=== PATIENT | male | born 1980 | race Caucasian/White ===

== ENCOUNTER 2016-12-14 13:57 | Emergency (ER) | payer OTHER ==
[~2016-12-14] VITALS: Ht 177.8 cm; Wt 72.6 kg
[~2016-12-14 13:57] MED LIST: 'PARAFON FORTE500 M1 PO; AMOXIL500 MG PO; CORDROL20 MG PO; CYCLOBENZAPRINE10 MG PO; DAYPRO600 M1 PO; HYDROCODONE BIT1 T11 PO; MEDROL DOSEPAK4 MG PO; MOTRIN800 MG PO; Motrin,Rufen800 MG PO; NAPROSYN500 MG PO; OMNICEF300 MG PO; ROBITUSSIN-AC 160 ML PO; SKELAXIN800 MG PO; ULTRAM50 MG PO
[2016-12-14] MEDS ORDERED: ZOFRAN4 MG PO (14:24)
[2016-12-14] MEDS ORDERED: Peridex 473 ML473 ML PO (14:24)
[2016-12-14] MEDS ORDERED: LIDOCAINE HCL100 M1 MM (14:24)
[2016-12-14] MEDS ORDERED: PENICILLIN VK500 MG PO (14:24)
== END 2016-12-14 15:36 | disposition home or self-care (01) ==
LOC: ED 13:57
DX: K02.9 Dental caries, unspecified (principal); R03.0 Elevated blood-pressure reading, without diagnosis of hypertension; F17.200 Nicotine dependence, unspecified, uncomplicated

== ENCOUNTER 2017-05-17 14:23 | Emergency (ER) | payer OTHER ==
[~2017-05-17] VITALS: Wt 74.8 kg
[~2017-05-17 14:23] MED LIST changes: +LIDOCAINE HCL100 M1 MM; +PENICILLIN VK500 MG PO; +Peridex 473 ML473 ML PO; +ZOFRAN4 MG PO
[2017-05-17] MEDS ORDERED: NOVAPLUS V0.09 MG/Ac INH (14:34)
[2017-05-17] MEDS ORDERED: AUGMENTIN 875875 MG PO (16:06)
[2017-05-17] MEDS ORDERED: PEPCID40 MG PO (16:06)
== END 2017-05-17 16:08 | disposition home or self-care (01) ==
LOC: ED 14:23
DX: K21.9 Gastro-esophageal reflux disease without esophagitis (principal); H66.91 Otitis media, unspecified, right ear; F17.200 Nicotine dependence, unspecified, uncomplicated

== ENCOUNTER 2017-07-20 17:30 | Emergency (ER) | payer OTHER ==
[~2017-07-20] VITALS: Ht 180.3 cm; Wt 74.8 kg
[~2017-07-20 17:30] MED LIST changes: +AUGMENTIN 875875 MG PO; +NOVAPLUS V0.09 MG/Ac INH; +PEPCID40 MG PO
[2017-07-20] MEDS ORDERED: OMNICEF300 MG PO (17:49)
== END 2017-07-20 17:56 | disposition home or self-care (01) ==
LOC: ED 17:30
DX: H66.91 Otitis media, unspecified, right ear (principal); R03.0 Elevated blood-pressure reading, without diagnosis of hypertension; K21.9 Gastro-esophageal reflux disease without esophagitis; F17.200 Nicotine dependence, unspecified, uncomplicated

== ENCOUNTER 2017-09-25 08:15 | Emergency (ER) | payer OTHER ==
[~2017-09-25] VITALS: Ht 180.3 cm; Wt 79.4 kg
[2017-09-25] MEDS ORDERED: SUBOXONE 8 MG-1 EACH SL (08:35)
[2017-09-25 08:42] LABS: BASO % 0.2 % (0.0-1.0); EOS # 0.3 10*3/uL (0.0-0.4); EOS % 1.6 % (1.0-4.0); HEMATOCRIT 40.9 % (42.0-52.0); HEMOGLOBIN 14.1 g/dl (14.0-18.0); LYMPH # 2.1 10*3/uL (1.3-4.4); MEAN CELL VOLUME 91.9 fl (80.0-94.0); MEAN CORPUSCULAR HGB 31.7 pg (27.0-31.0); MEAN CORPUSCULAR HGB CONC 34.5 g/dl (33.0-37.0); MEAN PLATELET VOLUME 8.9 fl (9.6-12.3); MONO # 0.8 10*3/uL (0.1-1.0); MONO % 5.1 % (3.0-9.0); NEUT # 12.7 10*3/uL (2.3-7.9); NEUT % 79.6 % (47.0-73.0); PLATELET COUNT AUTOMATED 260 10*3/uL (130-400); RED BLOOD COUNT 4.45 10*6/uL (4.50-5.90); RED CELL DISTRI WIDTH 12.7 % (0-14.5)
[2017-09-25 08:48] LABS: ACT PARTIAL THROMBO TIME 26.3 SECONDS (20.8-31.5)
[2017-09-25 08:58] LABS: ALBUMIN 4.1 gm/dl (3.1-4.5); ALKALINE PHOSPHATASE 69 U/L (45-117); BUN 8 mg/dl (7-24); CHLORIDE 104 mmol/L (98-107); CREATININE 1.05 mg/dL (0.70-1.30); POTASSIUM 4.4 mmol/L (3.5-5.1); SGOT/AST 13 IU/L (3-35); SGPT/ALT 21 U/L (12-78); SODIUM 139 mmol/L (136-145); TOTAL PROTEIN 7.6 gm/dL (6.4-8.2)
[2017-09-25 09:01] LABS: TROPONIN I < 0.015 ng/ml (<0.045)
== END 2017-09-25 11:43 | disposition home or self-care (01) ==
LOC: ED 08:15
PROVIDERS: Student in an Organized Health Care Education/Training Program
DX: R07.9 Chest pain, unspecified (principal); K21.9 Gastro-esophageal reflux disease without esophagitis

== ENCOUNTER 2018-03-05 18:41 | Emergency (ER) | payer OTHER ==
[~2018-03-05] VITALS: Ht 177.8 cm; Wt 72.6 kg
[~2018-03-05 18:41] MED LIST changes: +SUBOXONE 8 MG-1 EACH SL
[2018-03-05] MEDS ORDERED: ULTRAM50 MG PO (20:24)
== END 2018-03-05 20:35 | disposition home or self-care (01) ==
LOC: ED 18:41
DX: T23.252A Burn of second degree of left palm, initial encounter (principal); T23.241A Burn of second degree of multiple right fingers (nail), including thumb, initial encounter; T31.0 Burns involving less than 10% of body surface; X08.8XXA Exposure to other specified smoke, fire and flames, initial encounter; Y93.89 Activity, other specified; Y92.89 Other specified places as the place of occurrence of the external cause; Y99.8 Other external cause status

== ENCOUNTER 2018-11-14 17:46 | Emergency (ER) | payer SELFPAY | END 2018-11-14 18:05 | LOC: ED 17:46 | DX: K08.89 Other specified disorders of teeth and supporting structures (principal); Z53.21 Procedure and treatment not carried out due to patient leaving prior to being seen by health care provider ==

== ENCOUNTER 2019-04-22 07:38 | Emergency (ER) | payer OTHER ==
[~2019-04-22] VITALS: Ht 177.8 cm; Wt 70.3 kg
[2019-04-22] MEDS ORDERED: PREDNISONE50 MG PO (08:03)
[2019-04-22] MEDS ORDERED: ZITHROMAX250 MG PO (08:03)
[2019-07-12] MEDS ORDERED: SUBOXONE 8 MG-1 EACH SL (03:11)
== END 2019-04-22 08:45 | disposition home or self-care (01) ==
LOC: ED 07:38
DX: J20.9 Acute bronchitis, unspecified (principal); J02.9 Acute pharyngitis, unspecified; K21.9 Gastro-esophageal reflux disease without esophagitis; F17.200 Nicotine dependence, unspecified, uncomplicated

== ENCOUNTER 2019-05-15 03:02 | Emergency (ER) | payer OTHER ==
[~2019-05-15] VITALS: Ht 180.3 cm; Wt 72.6 kg
[~2019-05-15 03:02] MED LIST changes: +PREDNISONE50 MG PO; +ZITHROMAX250 MG PO
[2019-07-12] MEDS ORDERED: SUBOXONE 8 MG-1 EACH SL (03:11)
== END 2019-05-15 03:54 | disposition home or self-care (01) ==
LOC: ED 03:02
DX: H92.22 Otorrhagia, left ear (principal); K21.9 Gastro-esophageal reflux disease without esophagitis; Z79.899 Other long term (current) drug therapy

== ENCOUNTER 2019-07-04 22:30 | Emergency (ER) | payer OTHER ==
[~2019-07-04] VITALS: Ht 177.8 cm; Wt 68.0 kg
[2019-07-04] MEDS ORDERED: BUPRENORPHIN-NALOXON PO (22:56)
[2019-07-04 23:27] LABS: BASO # 0.1 10*3/uL (0.0-0.1); BASO % 0.6 % (0.0-1.0); EOS # 0.1 10*3/uL (0.0-0.4); EOS % 1.1 % (1.0-4.0); HEMATOCRIT 37.2 % (42.0-52.0); HEMOGLOBIN 12.4 g/dl (14.0-18.0); LYMPH # 3.6 10*3/uL (1.3-4.4); MEAN CELL VOLUME 96.1 fl (80.0-94.0); MEAN CORPUSCULAR HGB CONC 33.3 g/dl (33.0-37.0); MEAN PLATELET VOLUME 9.3 fl (9.6-12.3); MONO # 0.6 10*3/uL (0.1-1.0); MONO % 5.6 % (3.0-9.0); NEUT # 5.8 10*3/uL (2.3-7.9); NEUT % 57.5 % (47.0-73.0); PLATELET COUNT AUTOMATED 231 10*3/uL (130-400); RED BLOOD COUNT 3.87 10*6/uL (4.50-5.90); RED CELL DISTRI WIDTH 13.5 % (0-14.5); WHITE BLOOD COUNT 10.2 10*3/uL (4.8-10.8)
[2019-07-04 23:38] LABS: ALKALINE PHOSPHATASE 57 U/L (45-117); BUN 10 mg/dl (7-24); CHLORIDE 105 mmol/L (98-107); CREATININE 1.24 mg/dL (0.70-1.30); POTASSIUM 3.4 mmol/L (3.5-5.1); SGOT/AST 12 IU/L (3-35); SGPT/ALT 20 U/L (12-78); SODIUM 141 mmol/L (136-145); TOTAL PROTEIN 7.5 gm/dL (6.4-8.2)
[2019-07-04 23:42] LABS: ACETAMINOPHEN (TYLENOL) < 5.0 ug/ml (10-30); ETHYL ALCOHOL < 3.0 mg/dl (<3)
[2019-07-04 23:46] LABS: BILIRUBIN NEGATIVE (NEGATIVE); BLOOD NEGATIVE (NEGATIVE); CLARITY CLEAR (CLEAR); COLOR YELLOW (YELLOW); GLUCOSE NEGATIVE (NEGATIVE); KETONE NEGATIVE (NEGATIVE); LEUKO ESTERASE NEGATIVE (NEGATIVE); NITRITE NEGATIVE (NEGATIVE)
[2019-07-04 23:57] LABS: URINE AMPHETAMINES < 1000 (1000ng/ml); URINE BARBITURATES < 200 (200ng/ml); URINE BENZODIAZEPINES < 200 (200ng/ml); URINE CANNABINOIDS (THC) < 50 (50ng/ml); URINE COCAINE > 300 (300ng/ml); URINE METHADONE < 300 (300ng/ml); URINE OPIATES < 300 (300ng/ml)
[2019-07-05] LABS: URINE PHENCYCLIDINE < 25 (25ng/ml)
[2019-07-05 00:09] LABS: MUCOUS TRACE; RBC 0-2 rbc/hpf (0-2); WBC 0-2 wbc/hpf (0-5)
[2019-07-12] MEDS ORDERED: SUBOXONE 8 MG-1 EACH SL (03:11)
== END 2019-07-05 10:50 | disposition home or self-care (01) ==
LOC: ED 22:30
PROVIDERS: Emergency Medicine Emergency Medical Services
DX: F43.21 Adjustment disorder with depressed mood (principal); F14.10 Cocaine abuse, uncomplicated; K21.9 Gastro-esophageal reflux disease without esophagitis; Z79.899 Other long term (current) drug therapy

== ENCOUNTER 2019-07-14 17:53 | Emergency (ER) | payer OTHER ==
[~2019-07-14] VITALS: Wt 72.6 kg
--- NOTE | ~2019-07-14 | EKG ---
[place], [place] ELECTROCARDIOGRAM REPORT NAME: JENN LAI UNIT #: [id number] ROOM: DOCTOR: EPIPHANY DRAFT REPORT BIRTHDATE: [birth year] [facility] Test Date: 2019-07-14 Test Time: 18:23:19 Pat Name: JENN LAI Department: ED Room: Gender: L[place] Sewer: Jam Gong : 1980 Requested By: FIDENCIO BALDERAS Order Number: [id number] Reading MD: Ban Nava MD Measurements Intervals [place] Rate: 60 P: 67 MN: 151 QRS: 66 QRSD: 94 T: 46 QT: 444 QTc: 444 Interpretive Statements Sinus rhythm Probable left atrial enlargement RSR' in V1 or V2, probably normal variant Compared to ECG 07/12/2019 05:54:25 ST (T wave) deviation now present Right ventricular hypertrophy no longer present Electronically Signed On 07-28-2019 7:27:30 PDT by Ban Nava MD CM:EKGRPT:ELECTROCARDIOGRAM REPORT [id number] FIDENCIO CHRISTIANSON DRAFT REPORT FIDENCIO BALDERAS DO
[~2019-07-14 17:53] MED LIST changes: +BUPRENORPHIN-NALOXON PO
[2019-07-14 18:28] LABS: BASO % 0.3 % (0.0-1.0); EOS # 0.2 10*3/uL (0.0-0.4); EOS % 1.5 % (1.0-4.0); HEMATOCRIT 38.5 % (42.0-52.0); HEMOGLOBIN 12.7 g/dl (14.0-18.0); LYMPH # 2.4 10*3/uL (1.3-4.4); MEAN CELL VOLUME 97.7 fl (80.0-94.0); MEAN CORPUSCULAR HGB 32.2 pg (27.0-31.0); MEAN PLATELET VOLUME 9.3 fl (9.6-12.3); MONO # 0.6 10*3/uL (0.1-1.0); MONO % 5.4 % (3.0-9.0); NEUT # 7.3 10*3/uL (2.3-7.9); NEUT % 69.4 % (47.0-73.0); PLATELET COUNT AUTOMATED 219 10*3/uL (130-400); RED BLOOD COUNT 3.94 10*6/uL (4.50-5.90); RED CELL DISTRI WIDTH 13.3 % (0-14.5); WHITE BLOOD COUNT 10.6 10*3/uL (4.8-10.8)
[2019-07-14 18:37] LABS: ACT PARTIAL THROMBO TIME 28.1 SECONDS (20.0-32.1)
[2019-07-14 18:42] LABS: ALBUMIN 3.8 gm/dl (3.1-4.5); ALKALINE PHOSPHATASE 55 U/L (45-117); BUN 16 mg/dl (7-24); CHLORIDE 106 mmol/L (98-107); CREATININE 1.16 mg/dL (0.70-1.30); LIPASE 73 U/L (73-393); SGOT/AST 3 IU/L (3-35); SGPT/ALT 14 U/L (12-78); SODIUM 137 mmol/L (136-145)
[2019-07-14 18:47] LABS: ETHYL ALCOHOL < 3.0 mg/dl (<3); TROPONIN I < 0.015 ng/ml (<0.045)
== END 2019-07-14 20:25 | disposition left against medical advice (07) ==
LOC: ED 17:53
PROVIDERS: Emergency Medicine
DX: T40.5X1A Poisoning by cocaine, accidental (unintentional), initial encounter (principal); T40.1X1A Poisoning by heroin, accidental (unintentional), initial encounter; R40.0 Somnolence; K21.9 Gastro-esophageal reflux disease without esophagitis; F11.10 Opioid abuse, uncomplicated; F14.10 Cocaine abuse, uncomplicated; Z79.899 Other long term (current) drug therapy; Y92.481 Parking lot as the place of occurrence of the external cause

== ENCOUNTER 2019-07-17 01:17 | Emergency (ER) | payer OTHER ==
[~2019-07-17] VITALS: Ht 177.8 cm; Wt 68.0 kg
== END 2019-07-17 02:34 | disposition home or self-care (01) ==
LOC: ED 01:17
DX: F11.10 Opioid abuse, uncomplicated (principal); R10.9 Unspecified abdominal pain; R11.0 Nausea; K21.9 Gastro-esophageal reflux disease without esophagitis; F17.200 Nicotine dependence, unspecified, uncomplicated

== ENCOUNTER 2019-09-30 07:34 | Emergency (ER) | payer OTHER ==
[~2019-09-30] VITALS: Ht 180.3 cm; Wt 68.0 kg
[2019-09-30] MEDS ORDERED: Motrin,Rufen800 MG PO (08:42)
[2019-09-30] MEDS ORDERED: CYCLOBENZAPRINE10 MG PO (08:42)
== END 2019-09-30 09:08 | disposition home or self-care (01) ==
LOC: ED 07:34
DX: M79.671 Pain in right foot (principal); M54.9 Dorsalgia, unspecified; R20.0 Anesthesia of skin; K21.9 Gastro-esophageal reflux disease without esophagitis

== ENCOUNTER 2019-11-17 20:22 | Emergency (ER) | payer OTHER ==
[~2019-11-17] VITALS: Ht 177.8 cm; Wt 68.0 kg
[2019-11-17] MEDS ORDERED: LOTRIMIN ULTRA12 GM T (22:15)
[2019-11-17] MEDS ORDERED: ROBAXIN-750750 MG PO (22:15)
[2019-11-17] MEDS ORDERED: CEPHALEXIN500 M1 PO (22:15)
== END 2019-11-17 22:58 | disposition home or self-care (01) ==
LOC: ED 20:22
DX: B35.3 Tinea pedis (principal); L73.9 Follicular disorder, unspecified; M54.32 Sciatica, left side; M54.31 Sciatica, right side; K21.9 Gastro-esophageal reflux disease without esophagitis; F17.200 Nicotine dependence, unspecified, uncomplicated; Z79.899 Other long term (current) drug therapy

== ENCOUNTER 2020-01-27 22:01 | Emergency (ER) | payer OTHER ==
[~2020-01-27] VITALS: Ht 177.8 cm; Wt 65.8 kg
[~2020-01-27 22:01] MED LIST changes: +CEPHALEXIN500 M1 PO; +LOTRIMIN ULTRA12 GM T; +ROBAXIN-750750 MG PO
[2020-01-27 23:07] LABS: BASO # 0.1 10*3/uL (0.0-0.1); BASO % 0.7 % (0.0-1.0); EOS # 0.3 10*3/uL (0.0-0.4); EOS % 3.7 % (1.0-4.0); HEMATOCRIT 39.9 % (42.0-52.0); HEMOGLOBIN 13.8 g/dl (14.0-18.0); MEAN CELL VOLUME 94.1 fl (80.0-94.0); MEAN CORPUSCULAR HGB 32.5 pg (27.0-31.0); MEAN CORPUSCULAR HGB CONC 34.6 g/dl (33.0-37.0); MEAN PLATELET VOLUME 8.9 fl (9.6-12.3); MONO # 0.5 10*3/uL (0.1-1.0); MONO % 6.8 % (3.0-9.0); NEUT # 3.8 10*3/uL (2.3-7.9); NEUT % 49.7 % (47.0-73.0); PLATELET COUNT AUTOMATED 239 10*3/uL (130-400); RED BLOOD COUNT 4.24 10*6/uL (4.50-5.90); WHITE BLOOD COUNT 7.7 10*3/uL (4.8-10.8)
[2020-01-27 23:18] LABS: ACT PARTIAL THROMBO TIME 28.5 SECONDS (20.0-32.1)
[2020-01-27 23:22] LABS: ALBUMIN 3.6 gm/dl (3.1-4.5); ALKALINE PHOSPHATASE 65 U/L (45-117); BUN 15 mg/dl (7-24); CHLORIDE 107 mmol/L (98-107); CREATININE 1.17 mg/dL (0.70-1.30); POTASSIUM 3.6 mmol/L (3.5-5.1); SGOT/AST 11 IU/L (3-35); SGPT/ALT 26 U/L (12-78); SODIUM 138 mmol/L (136-145)
== END 2020-01-28 02:10 | disposition home or self-care (01) ==
LOC: ED 22:01
PROVIDERS: Internal Medicine
DX: S60.559A Superficial foreign body of unspecified hand, initial encounter (principal); K21.9 Gastro-esophageal reflux disease without esophagitis; Z79.899 Other long term (current) drug therapy; X58.XXXA Exposure to other specified factors, initial encounter; Y93.89 Activity, other specified; Y92.89 Other specified places as the place of occurrence of the external cause; Y99.8 Other external cause status

== ENCOUNTER 2020-06-27 14:22 | Emergency (ER) | payer OTHER ==
[~2020-06-27] VITALS: Ht 177.8 cm; Wt 61.2 kg
[2020-06-27] MEDS ORDERED: OFLOXACIN OTIC5 ML OPH (15:23)
[2020-06-27] MEDS ORDERED: CEPHALEXIN500 M1 PO (15:23)
== END 2020-06-27 15:45 | disposition home or self-care (01) ==
LOC: ED 14:22
DX: H60.91 Unspecified otitis externa, right ear (principal)

== ENCOUNTER 2020-11-29 15:59 | Inpatient (IN) | payer OTHER ==
[~2020-11-29] VITALS: Ht 185.4 cm; Wt 65.8 kg
[~2020-11-29 15:59] MED LIST changes: +OFLOXACIN OTIC5 ML OPH
[2020-11-29 16:04] VITALS: BP 146/92
[2020-11-29 16:33] VITALS: BP 131/82
[2020-11-29 16:37] LABS: BASO % 0.2 % (0.0-1.0); EOS # 0.1 10*3/uL (0.0-0.4); EOS % 1.7 % (1.0-4.0); HEMATOCRIT 41.2 % (42.0-52.0); LYMPH # 1.7 10*3/uL (1.3-4.4); LYMPH % 21.4 % (27.0-41.0); MEAN CORPUSCULAR HGB 30.3 pg (27.0-31.0); MEAN CORPUSCULAR HGB CONC 33.7 g/dl (33.0-37.0); MEAN PLATELET VOLUME 8.9 fl (9.6-12.3); MONO # 0.4 10*3/uL (0.1-1.0); MONO % 5.2 % (3.0-9.0); NEUT # 5.7 10*3/uL (2.3-7.9); NEUT % 71.1 % (47.0-73.0); PLATELET COUNT AUTOMATED 279 10*3/uL (130-400); RED BLOOD COUNT 4.58 10*6/uL (4.50-5.90); RED CELL DISTRI WIDTH 12.9 % (0-14.5); WHITE BLOOD COUNT 8.1 10*3/uL (4.8-10.8)
[2020-11-29 17:24] LABS: ACT PARTIAL THROMBO TIME 25.5 SECONDS (20.0-32.1)
[2020-11-29 17:33] LABS: ALBUMIN 3.4 gm/dl (3.1-4.5); ALKALINE PHOSPHATASE 65 U/L (45-117); BUN 13 mg/dl (7-24); CHLORIDE 106 mmol/L (98-107); CPK 101 U/L (39-308); CREATININE 1.03 mg/dL (0.70-1.30); LIPASE 58 U/L (73-393); POTASSIUM 3.8 mmol/L (3.5-5.1); SGOT/AST 10 IU/L (3-35); SGPT/ALT 20 U/L (12-78); SODIUM 138 mmol/L (136-145); TOTAL PROTEIN 7.1 gm/dL (6.4-8.2)
[2020-11-29 17:34] LABS: ACETAMINOPHEN (TYLENOL) < 5.0 ug/ml (10-30); ETHYL ALCOHOL < 3.0 mg/dl (<3); TROPONIN I < 0.015 ng/ml (<0.045)
[2020-11-29 17:52] VITALS: BP 139/85
[2020-11-29 19:08] VITALS: BP 111/63
[2020-11-29 21:38] VITALS: BP 111/64
[2020-11-29 22:51] VITALS: BP 143/87
[2020-11-30 01:01] LABS: BILIRUBIN Negative (Negative); BLOOD Negative (Negative); CLARITY Clear (Clear); COLOR Yellow (Yellow); GLUCOSE Negative (Negative); KETONE Negative (Negative); LEUKO ESTERASE Negative (Negative); NITRITE Negative (Negative); UROBILINOGEN 0.2 E.U./dl (0.0-1.0)
[2020-11-30 01:05] LABS: URINE AMPHETAMINES < 1000 (1000ng/ml); URINE BARBITURATES < 200 (200ng/ml); URINE BENZODIAZEPINES < 200 (200ng/ml); URINE CANNABINOIDS (THC) < 50 (50ng/ml); URINE COCAINE < 300 (300ng/ml); URINE METHADONE < 300 (300ng/ml); URINE OPIATES < 300 (300ng/ml)
[2020-11-30 01:06] LABS: URINE PHENCYCLIDINE < 25 (25ng/ml)
[2020-11-30 01:18] LABS: WBC 0-2 wbc/hpf (0-5)
[2020-11-30 01:54] VITALS: BP 128/85
[2020-11-30 05:39] VITALS: BP 110/78
[2020-11-30 06:00] LABS: BASO % 0.1 % (0.0-1.0); EOS # 0.2 10*3/uL (0.0-0.4); EOS % 2.3 % (1.0-4.0); LYMPH # 1.9 10*3/uL (1.3-4.4); LYMPH % 24.8 % (27.0-41.0); MEAN CELL VOLUME 90.7 fl (80.0-94.0); MEAN CORPUSCULAR HGB 30.5 pg (27.0-31.0); MEAN CORPUSCULAR HGB CONC 33.7 g/dl (33.0-37.0); MEAN PLATELET VOLUME 9.3 fl (9.6-12.3); MONO # 0.3 10*3/uL (0.1-1.0); MONO % 4.5 % (3.0-9.0); NEUT # 5.1 10*3/uL (2.3-7.9); PLATELET COUNT AUTOMATED 248 10*3/uL (130-400); RED BLOOD COUNT 4.19 10*6/uL (4.50-5.90); WHITE BLOOD COUNT 7.5 10*3/uL (4.8-10.8)
[2020-11-30 06:16] LABS: ALBUMIN 3.3 gm/dl (3.1-4.5); BUN 11 mg/dl (7-24); CHLORIDE 108 mmol/L (98-107); CREATININE 0.85 mg/dL (0.70-1.30); POTASSIUM 3.8 mmol/L (3.5-5.1); SGOT/AST 14 IU/L (3-35); SGPT/ALT 20 U/L (12-78); SODIUM 140 mmol/L (136-145)
[2020-11-30 06:27] LABS: ALKALINE PHOSPHATASE 58 U/L (45-117); THYROID STIM HORMONE (HS) 0.693 uIU/ml (0.358-4.75); TOTAL PROTEIN 6.6 gm/dL (6.4-8.2)
[2020-11-30 07:32] VITALS: BP 113/69
[2020-11-30 14:25] VITALS: BP 100/72
== END 2020-11-30 23:16 | disposition home health service (06) | DRG 817 ==
LOC: ED 15:59 → EDHOLD 18:43
PROVIDERS: Emergency Medicine; Student in an Organized Health Care Education/Training Program; ADMIT Internal Medicine; ATTEND Internal Medicine
DX: T43.592A Poisoning by other antipsychotics and neuroleptics, intentional self-harm, initial encounter (principal); G93.41 Metabolic encephalopathy; F17.210 Nicotine dependence, cigarettes, uncomplicated; G21.9 Secondary parkinsonism, unspecified; D64.9 Anemia, unspecified; E83.41 Hypermagnesemia; G89.29 Other chronic pain; F43.21 Adjustment disorder with depressed mood; Z80.9 Family history of malignant neoplasm, unspecified; Y92.89 Other specified places as the place of occurrence of the external cause; F33.2 Major depressive disorder, recurrent severe without psychotic features

== ENCOUNTER → 2022-06-22 | Outpatient (CLI) | payer OTHER | END | disposition home or self-care (01) | LOC: RAD 08:07 | PROVIDERS: ATTEND Nurse Practitioner Family | DX: M25.512 Pain in left shoulder (principal); M54.2 Cervicalgia; M54.41 Lumbago with sciatica, right side; M54.42 Lumbago with sciatica, left side ==

== ENCOUNTER 2022-11-21 10:34 | Emergency (ER) | payer OTHER ==
[~2022-11-21] VITALS: Ht 177.8 cm; Wt 68.0 kg
[2022-11-21 11:20] LABS: BASO % 0.3 % (0.0-1.0); EOS # 0.1 10*3/uL (0.0-0.4); EOS % 0.7 % (1.0-4.0); HEMATOCRIT 44.8 % (42.0-52.0); LYMPH % 8.1 % (27.0-41.0); MEAN CELL VOLUME 93.3 fl (80.0-94.0); MEAN CORPUSCULAR HGB CONC 33.3 g/dl (33.0-37.0); MEAN PLATELET VOLUME 9.1 fl (9.6-12.3); MONO # 0.7 10*3/uL (0.1-1.0); MONO % 5.5 % (3.0-9.0); NEUT # 10.2 10*3/uL (2.3-7.9); NEUT % 85.1 % (47.0-73.0); PLATELET COUNT AUTOMATED 386 10*3/uL (130-400); RED CELL DISTRI WIDTH 12.1 % (0-14.5); WHITE BLOOD COUNT 11.9 10*3/uL (4.8-10.8)
[2022-11-21 11:49] LABS: ALKALINE PHOSPHATASE 71 U/L (46-116); BUN 10 mg/dl (9-23); CHLORIDE 96 mmol/L (98-107); SGPT/ALT 297 U/L (10-49)
[2022-11-21] MEDS ORDERED: ONDANSETRON4 MG SL (14:59)
== END 2022-11-21 15:37 | disposition home or self-care (01) ==
LOC: ED 10:34
PROVIDERS: Physician Assistant
DX: B34.9 Viral infection, unspecified (principal); Z20.822 Contact with and (suspected) exposure to COVID-19; F17.200 Nicotine dependence, unspecified, uncomplicated; F10.90 Alcohol use, unspecified, uncomplicated